=== PATIENT | female | born 1935 | race Caucasian/White ===

== ENCOUNTER 2017-09-24 14:15 | Observation (INO) | payer OTHER ==
[~2017-09-24] VITALS: Ht 152.4 cm; Wt 40.1 kg
[~2017-09-24 14:15] MED LIST: ASPIRIN325 MG PO; CARDIZEM; DILTIAZEM
[2017-09-24 15:27] LABS: HEMATOCRIT 40.4 % (36.0-46.0); HEMOGLOBIN 13.5 G/DL (11.9-15.5); MCH 32.7 PG (29.0-34.0); MCHC 33.4 G/DL (30.0-36.0); MCV 97.8 FL (83-99); PLATELET COUNT 209 K/uL (156-360); RBC DIS.WIDTH-CV 14.2 % (11.8-14.6); RBC DIS.WIDTH-SD 51.5 % (39-53); RED BLOOD COUNT 4.13 M/uL (3.80-5.20); WHITE BLOOD COUNT 7.6 K/uL (4.1-10.2)
[2017-09-24 15:33] LABS: CHLORIDE 99 mEq/L (99-109); POTASSIUM 4.2 mEq/L (3.7-5.4); SODIUM 139 mEq/L (136-147)
[2017-09-24 15:35] LABS: GLUCOSE 137 mg/dL (70-99)
[2017-09-24 15:39] LABS: CREATININE 1.1 mg/dL (0.6-1.3); GFR ESTIMATE (CALCULATED) 51 mL/min/
[2017-09-24 15:40] LABS: UREA NITROGEN (BUN) 24 mg/dL (9-23)
[2017-09-24 15:47] LABS: TROP-I INTERPRETATION NEGATIVE; TROPONIN-I < 0.01 ng/mL (0.0-0.30)
[2017-09-24 17:48] VITALS: BP 184/84
[2017-09-24] MEDS ORDERED: CARDIZEM30 MG PO (18:05)
[2017-09-24] MEDS ORDERED: LO-DOSE ASPIRIN81 M1 PO (18:05)
[2017-09-24] MEDS ORDERED: LANOXIN125 MCG PO (18:06)
[2017-09-24] MEDS ORDERED: PREVAGEN PO (18:07)
[2017-09-24] MEDS ORDERED: VITAMIN D33000 UNIT PO (18:08)
[2017-09-24] MEDS ORDERED: TYLENOL EXTRA500 MG PO (18:08)
[2017-09-24] MEDS ORDERED: BOOST237 ML PO (18:09)
[2017-09-24 19:45] VITALS: BP 146/70
[2017-09-24 20:00] LABS: APPEARANCE CLOUDY ((CLEAR)); BILIRUBIN NEGATIVE; BLOOD NEGATIVE; COLOR YELLOW ((YELLOW)); GLUCOSE (STRIP) NEGATIVE; KETONES NEGATIVE; LEUKOCYTES NEGATIVE; NITRITE NEGATIVE; PROTEIN (STRIP) 100; SPECIFIC GRAVITY 1.012 (1.000-1.030); UROBILINOGEN 0.2 MG/DL (0.2-1.0)
[2017-09-24 20:07] LABS: BACTERIA RARE /HPF; EPITHELIAL CELLS RARE /HPF; MUCUS TRACE /LPF; RED BLOOD CELLS 0-5 /HPF (0-5); UCUL ADDED? NO; WHITE BLOOD CELLS 0-5 /HPF (0-5)
[2017-09-24 20:44] LABS: TROP-I INTERPRETATION NEGATIVE; TROPONIN-I < 0.01 ng/mL (0.0-0.30)
[2017-09-25] VITALS (7 sets, daily range): BP systolic 137–183; BP diastolic 64–95
[2017-09-25 03:39] LABS: TROP-I INTERPRETATION NEGATIVE; TROPONIN-I < 0.01 ng/mL (0.0-0.30)
[2017-09-25 09:36] LABS: TROP-I INTERPRETATION NEGATIVE; TROPONIN-I 0.01 ng/mL (0.0-0.30)
[2017-09-25] MEDS ORDERED: DIVALPROEX SOD500 M1 PO (15:42)
== END 2017-09-25 20:31 | disposition home or self-care (01) ==
LOC: EME 14:15 → EDOF 16:31 → 4SOUTH 16:31 → ENRESERV 16:42 → 4SOUTH 17:43
PROVIDERS: Emergency Medicine; Hospitalist
DX: R55 Syncope and collapse (principal); G40.909 Epilepsy, unspecified, not intractable, without status epilepticus; R94.31 Abnormal electrocardiogram [ECG] [EKG]; I48.0 Paroxysmal atrial fibrillation; F03.90 Unspecified dementia, unspecified severity, without behavioral disturbance, psychotic disturbance, mood disturbance, and anxiety; I73.9 Peripheral vascular disease, unspecified; E78.5 Hyperlipidemia, unspecified; I11.9 Hypertensive heart disease without heart failure; E46 Unspecified protein-calorie malnutrition; Z79.82 Long term (current) use of aspirin; R29.6 Repeated falls; I34.1 Nonrheumatic mitral (valve) prolapse; Z82.49 Family history of ischemic heart disease and other diseases of the circulatory system; R32 Unspecified urinary incontinence
CPT/HCPCS: 70450; 71046; 80048; 80162; 81003; 82272; 83880; 84484; 85027; 93005; 93306; 95819; 99281; 99285; G0378